=== PATIENT | male | born 1960 | race Caucasian/White ===

== ENCOUNTER 2021-06-18 18:27 | Emergency (ER) | payer OTHER, SELFPAY ==
--- NOTE | ~2021-06-18 | XR_ITS ---
EXAMINATION: XR chest 2V EXAM DATE: 06/18/2021 19:02 INDICATION: Shortness of breath, dizziness, cough. TECHNIQUE: Frontal and lateral projections of the chest obtained and reviewed. There is no prior yamileth dy for comparison. FINDINGS: There is moderate amount of bilateral ill-defined airspace disease could be acute viral pne umonia. Edema from other etiology or other infectious process also possible radiographically. No pne umothorax or pleural effusion. Cardiac silhouette difficult to evaluate. IMPRESSION: Moderate amount ill-defined bilateral airspace disease, please clinically correlate. Con drainage design coordinator COVID given community prevalence. Reviewed, dictated and finalized at location A. UCT SUPPORT CONSULTANT IMPRESSION: Moderate amount ill-defined bilateral airspace disease, please cli nically correlate. Consider COVID given community prevalence.
[2021-06-18 18:36] VITALS: BP 108/73; PULSE 81; RESP 32; TEMP 37.7; O2SAT 87
--- NOTE | 2021-06-18 18:43 | ECG_ITS ---
Measurements Intervals [place] Rate: 67 P: 41 MS: 166 QRS: 25 QRSD: 102 T: 37 QT: 376 QTc: 399 Interpretive Statements SINUS RHYTHM INCOMPLETE RIGHT BUNDLE BRANCH BLOCK BASELINE ARTIFACT- I, II, AVR, AVL, AVF BORDERLINE ECG Electronically Signed On 06-19-2021 9:58:27 PRECISION ASSEMBLER by Lawson Viera D.O.
--- NOTE | 2021-06-18 18:55 | ED.SOB ---
HPI - SOB/Dyspnea General Chief Complaint: Upper Respiratory Infection Stated Complaint: lightheaded cough Time Seen by Provider: 06/18/21 18:43 Source: patient and RN notes reviewed Mode of arrival: ambulatory Limitations: no limitations History of Present Illness HPI Narrative: Patient presents today complaining of a 1 week history of fever up to 100.5, cough with clear sputum, shortness of breath with lightheadedness, increased thirst. Denies chest pain. Denies sore throat, congestion, rhinorrhea, ear pain. Denies history of COPD or asthma. He is a non-smoker. He has been vaccinated against influenza. He has not been vaccinated against COVID-19. He has been taking Tylenol and ibuprofen for his fever. On arrival, RN states patient looked very dusky and pulse ox was 87% on RA. He was immediately placed on 2L O2 via NC and pulse ox elías to 97%. By the time this author noted patient a few minutes later, his color was normal, his respiratory rate had slowed and o2 sat was WNL. MD elicited complaint: shortness of breath and cough Related Data Home Medications Medication Instructions Recorded Confirmed No Home Medications 06/18/21 06/18/21 Allergies Allergy/AdvReac Type Severity Reaction Status Date / Time No Known Allergies Allergy Verified 06/18/21 18:48 Review of Systems Review of Systems: CONSTITUTIONAL: Denies body aches, chills, or sweats.+ Fever EYES: Denies visual changes, redness, or discharge. ENT: Denies rhinorrhea, congestion, sore throat, or otalgia. CARDIOVASCULAR: Denies chest pain, palpitations, or edema. RESPIRATORY: + Cough, shortness of breath GASTROINTESTINAL: Denies abdominal pain, nausea, vomiting, or diarrhea.+ GENITOURINARY: Denies dysuria or hematuria. SKIN: Denies rash, itching, or wounds. MUSCULOSKELETAL: Denies back pain, joint pain, or myalgia. NEUROLOGIC: Denies headache, numbness, tingling, or weakness.+ Lightheadedness PSYCH: Denies depression or anxiety. [facility] Social History Social History (Updated 06/18/21 @ 19:00 by Shelli Stewart, ZIPPER TRIMMER, ) Smoking status: Never smoker Comments At time of signature, I have reviewed and agree with nursing past medical, surgical, social and family history unless otherwise noted. Please see nursing chart for further information. There is no relevant family history pertinent to the presenting complaint Exam Narrative: GENERAL: Ill appearing, well-nourished, and in no acute distress. HEAD: Normocephalic, atraumatic. EYES: EOMI. No redness or drainage. Conjunctivae normal. ENT: Mucous membranes pink and moist. Nares clear. No rhinorrhea. TMs normal bilaterally. Throat normal. Uvula midline. NECK: Normal AROM. Supple. No lymphadenopathy. CHEST: No respiratory distress. Significant crackles in the bilateral lower lobes. HEART: Regular rate and rhythm. No murmur appreciated. Normal peripheral pulses. ABDOMEN: Soft, nontender, nondistended, normal active bowel sounds. MUSCULOSKELETAL: No bony tenderness. EXTREMITIES: Normal range of motion. No edema. SKIN: Warm, dry, no rash. Capillary refill normal. Normal skin turgor. NEURO: No focal deficits. Alert and oriented x3. Gait steady. PSYCH: Normal affect. No signs of depression or anxiety. Course Course Emergency Course: Patient states he is feeling less short of breath after being on the nasal cannula during his visit. Vital Signs Vital signs: Vital Signs Temperature 100 F H 06/18/21 18:36 Pulse Rate 81 06/18/21 18:36 Respiratory Rate 32 H 06/18/21 18:36 Blood Pressure 108/73 06/18/21 18:36 Pulse Oximetry 87 L 06/18/21 18:36 Temperature 100 F H 06/18/21 18:36 Pulse Rate 75 06/18/21 19:47 Respiratory Rate 27 H 06/18/21 19:47 Blood Pressure 123/73 06/18/21 19:47 Pulse Oximetry 96 06/18/21 19:47 Reviewed Transfer Transfered to: [facility] Transportation: ALS Transfer rationale: Hypoxia, pneumonia Accepting physician: Boaz
[2021-06-18 19:07] VITALS: O2SAT 97
[2021-06-18 19:47] VITALS: BP 123/73; PULSE 75; RESP 27; O2SAT 96
== END 2021-06-18 19:53 | disposition short-term general hospital (02) ==
PROVIDERS: Emergency Provider Nurse Practitioner; PCP Family Medicine
DX: U07.1 COVID-19 (principal); J12.82 Pneumonia due to coronavirus disease 2019; I45.10 Unspecified right bundle-branch block
CPT/HCPCS: 71046; 87426; 87804; 93005; 99215; C9803; G0463